=== PATIENT | male | born 1945 | race Caucasian/White ===

== ENCOUNTER 2019-02-25 09:08 | Inpatient (IN) | payer MEDICARE, MEDICAID ==
[2019-02-25] VITALS (9 sets, daily range): BP systolic 117–140; BP diastolic 27–75
[~2019-02-25] VITALS: Ht 167.6 cm; Wt 101.2 kg
[2019-02-25] MEDS ORDERED: IPRATROPIUM BROMIDE (0.02%) 0.5MG/2.5ML NEB HHN STA (09:21)
[2019-02-25] MEDS ORDERED: MAGNESIUM 2 G PREMIX 50 ML IV STA (09:21)
[2019-02-25] MEDS ORDERED: METHYLPREDNISOLONE SOD SUCC 125 MG/2 ML VIAL IV STA (09:21)
[2019-02-25] MEDS ORDERED: ALBUTEROL (0.083%) 2.5MG/3ML NEB HHN STA (09:21)
[2019-02-25] MEDS ORDERED: FUROSEMIDE 40MG/4ML VIAL IVP ONE (09:30)
[2019-02-25] MEDS ORDERED: ALBUTEROL (0.5%) 2.5MG/0.5ML NEB HHN ONE (09:34)
[2019-02-25] MEDS ORDERED: ALBUTEROL (0.083%) 2.5MG/3ML NEB ONE (09:35)
[2019-02-25] MEDS ORDERED: IPRATROPIUM BROMIDE (0.02%) 0.5MG/2.5ML NEB ONE (09:36)
[2019-02-25 09:37] LABS: CHLORIDE 109 mEq/L (98-107)
[2019-02-25 09:38] LABS: BASOPHILS % 0.9 % (0.0-2.0); EOSINOPHILS % 3.3 % (0.0-5.0); HEMATOCRIT. 39.9 % (42.0-52.0); HEMOGLOBIN. 13.2 g/dL (14.0-18.0); LYMPHOCYTES % 22.6 % (20.0-50.0); MEAN CORPUSCULAR HEMOGLOBIN 29.5 pg (28.0-32.0); MONOCYTES % 6.8 % (2.0-8.0); NEUTROPHILS % 66.4 % (40.0-76.0); PLATELET 186 x1000/uL (130-400); RED BLOOD CELL COUNT 4.48 mill/uL (4.7-6.1); RED CELL DISTRIBUTION WIDTH 15.3 % (11.6-14.6)
[2019-02-25 09:39] LABS: INR 1.3; PROTHROMBIN TIME 13.4 sec (9.6-11.0)
[2019-02-25 10:49] LABS: BG BASE EXCESS -2.4 mmol/L (-2.0-2.0); BG BILEVEL POS AIRWAY PRESSURE ST=15/5; BG CARBOXYHEMOGLOBIN 0.2 % (0.5-1.5); BG DEOXYHEMOGLOBIN 1.2 % (0.0-5.0); BG FRACTION INSPIRED OXYGEN 100; BG OXYGEN SATURATION 98.8 % (92.0-98.5); BG OXYHEMOGLOBIN 97.6 % (94.0-97.0); BG PCO2 42.3 mmHg (35.0-45.0); BG PH 7.354 (7.350-7.450); BG PO2 345.7 mmHg (75.0-100.0); BG PRESSURE SUPPORT 10; BG SAMPLE SITE LEFT BRACHIAL; BG VENT MODE MASK - BIPAP; BG VENT RATE 20 set
[2019-02-25 10:51] LABS: CLARITY URINE CLEAR (CLEAR); COLOR URINE YELLOW (YELLOW); KETONES URINE NEGATIVE (NEGATIVE); LEUKOCYTE ESTERASE URINE NEGATIVE (NEGATIVE); NITRITE URINE NEGATIVE (NEGATIVE); OCCULT BLOOD URINE NEGATIVE (NEGATIVE); PROTEIN URINE 2+ (NEGATIVE); SPECIFIC GRAVITY URINE 1.012 (1.005-1.030); UROBILINOGEN URINE 0.2 E.U./dL (0.2-1.0)
[2019-02-25] MEDS ORDERED: HYDROCODONE/ACETAMINOPHEN 5/325MG TABLET PO PRN (15:15)
[2019-02-25] MEDS ORDERED: ONDANSETRON HCL 4MG/2ML INJ IV PRN (15:15)
[2019-02-25] MEDS ORDERED: IPRATROPIUM/ALBUTEROL 0.5-3(2.5)MG/3ML NEB INH PRN (15:15)
[2019-02-25] MEDS ORDERED: CLONIDINE 0.1MG TABLET PO PRN (15:15)
[2019-02-25] MEDS ORDERED: ACETAMINOPHEN 325MG TABLET PO PRN (15:15)
[2019-02-25] MEDS: FUROSEMIDE 40MG/4ML VIAL IVP SCH (15:44)
[2019-02-25] MEDS: ENOXAPARIN 30MG/0.3ML SYR SUBCUT SCH (15:45)
[2019-02-25] MEDS ORDERED: DEXTROSE 50% WATER 50ML SYRINGE IV PRN (17:30)
[2019-02-25] MEDS: LEVOFLOXACIN 750MG PREMIX 150 ML IV SCH (17:31)
[2019-02-25] MEDS: INSULIN LISPRO 100 UNITS/ML SUBCUT SCH ×2 (17:32→20:55)
[2019-02-25] MEDS: BLOOD SUGAR DIAGNOSTIC STRIP TEST SCH ×2 (17:32→20:55)
[2019-02-25] MEDS: LISINOPRIL 10MG TABLET PO SCH (20:54)
[2019-02-25] MEDS: CARVEDILOL 3.125 MG TABLET PO SCH (20:54)
[2019-02-26] VITALS (13 sets, daily range): BP systolic 109–142; BP diastolic 55–77
[2019-02-26] MEDS: FUROSEMIDE 40MG/4ML VIAL IVP SCH ×2 (05:30→17:27)
[2019-02-26] MEDS: ENOXAPARIN 30MG/0.3ML SYR SUBCUT SCH (05:30)
[2019-02-26 06:42] LABS: BASOPHILS % 0.1 % (0.0-2.0); HEMATOCRIT. 36.1 % (42.0-52.0); HEMOGLOBIN. 12.2 g/dL (14.0-18.0); LYMPHOCYTES % 7.4 % (20.0-50.0); MEAN CORPUSCULAR HEMOGLOBIN 29.4 pg (28.0-32.0); MEAN CORPUSCULAR VOLUME 86.9 fL (80.0-94.0); MONOCYTES % 5.7 % (2.0-8.0); NEUTROPHILS % 86.8 % (40.0-76.0); PLATELET 136 x1000/uL (130-400); RED BLOOD CELL COUNT 4.15 mill/uL (4.7-6.1); RED CELL DISTRIBUTION WIDTH 14.7 % (11.6-14.6)
[2019-02-26 06:54] LABS: CHLORIDE 107 mEq/L (98-107)
[2019-02-26 07:10] LABS: LDL CHOLESTEROL 48 mg/dL (5-100)
[2019-02-26 07:11] LABS: HDL CHOLESTEROL 45 mg/dL (40-59)
[2019-02-26 07:13] LABS: CREATINE KINASE 59 IU/L (39-308)
[2019-02-26 07:24] LABS: T4 FREE 1.17 ng/dL (0.76-1.46)
[2019-02-26] MEDS: BLOOD SUGAR DIAGNOSTIC STRIP TEST SCH ×4 (08:22→21:21)
[2019-02-26] MEDS: CARVEDILOL 3.125 MG TABLET PO SCH ×2 (09:06→21:25)
[2019-02-26] MEDS: METHYLPREDNISOLONE SOD SUCC 40 MG/ML VIAL IV SCH (09:06)
[2019-02-26] MEDS: ASPIRIN 81MG EC TABLET PO SCH (09:07)
[2019-02-26] MEDS: INSULIN LISPRO 100 UNITS/ML SUBCUT SCH ×4 (09:13→21:31)
[2019-02-26] MEDS: LISINOPRIL 10MG TABLET PO SCH ×2 (09:18→21:25)
[2019-02-26] MEDS: LEVOFLOXACIN 750MG PREMIX 150 ML IV SCH (17:28)
[2019-02-26] MEDS: APIXABAN 5 MG TABLET PO SCH (21:25)
[2019-02-27] VITALS (8 sets, daily range): BP systolic 110–126; BP diastolic 59–73
[2019-02-27 06:29] LABS: BASOPHILS % 0.1 % (0.0-2.0); HEMATOCRIT. 36.5 % (42.0-52.0); HEMOGLOBIN. 12.3 g/dL (14.0-18.0); LYMPHOCYTES % 11.1 % (20.0-50.0); MEAN CORPUSCULAR HEMOGLOBIN 29.5 pg (28.0-32.0); MEAN CORPUSCULAR VOLUME 87.5 fL (80.0-94.0); MEAN PLATELET VOLUME 8.8 fl (7.4-10.4); MONOCYTES % 8.2 % (2.0-8.0); NEUTROPHILS % 80.6 % (40.0-76.0); PLATELET 151 x1000/uL (130-400); RED BLOOD CELL COUNT 4.17 mill/uL (4.7-6.1); RED CELL DISTRIBUTION WIDTH 14.6 % (11.6-14.6)
[2019-02-27] MEDS: BLOOD SUGAR DIAGNOSTIC STRIP TEST SCH ×2 (06:31→12:30)
[2019-02-27] MEDS: FUROSEMIDE 40MG/4ML VIAL IVP SCH (07:07)
[2019-02-27] MEDS: INSULIN LISPRO 100 UNITS/ML SUBCUT SCH ×2 (07:18→13:43)
[2019-02-27] MEDS: METHYLPREDNISOLONE SOD SUCC 40 MG/ML VIAL IV SCH (08:04)
[2019-02-27] MEDS: APIXABAN 5 MG TABLET PO SCH (08:05)
[2019-02-27] MEDS: CARVEDILOL 3.125 MG TABLET PO SCH (08:05)
[2019-02-27] MEDS: ASPIRIN 81MG EC TABLET PO SCH (08:05)
[2019-02-27] MEDS: LISINOPRIL 10MG TABLET PO SCH (08:06)
== END 2019-02-27 14:20 | disposition home or self-care (01) | DRG 291 ==
LOC: ER 09:08 → 5EST 09:59 → EDBEDREQ 10:06 → ENRESERV 10:46
PROVIDERS: ADMIT Internal Medicine; ATTEND Internal Medicine
PROC: 5A09357 Assistance with Respiratory Ventilation, Less than 24 Consecutive Hours, Continuous Positive Airway Pressure (ICD-10-PCS; principal; 2019-02-25)
DX: I11.0 Hypertensive heart disease with heart failure (principal); J96.01 Acute respiratory failure with hypoxia; J44.1 Chronic obstructive pulmonary disease with (acute) exacerbation; J84.9 Interstitial pulmonary disease, unspecified; I50.23 Acute on chronic systolic (congestive) heart failure; E78.5 Hyperlipidemia, unspecified; I42.9 Cardiomyopathy, unspecified; E11.9 Type 2 diabetes mellitus without complications; Z95.810 Presence of automatic (implantable) cardiac defibrillator; Z99.81 Dependence on supplemental oxygen; Z82.49 Family history of ischemic heart disease and other diseases of the circulatory system
CPT/HCPCS: 36415; 36600; 71045; 80048; 80061; 82375; 82550; 82805; 82962; 83605; 83735; 83880; 84145; 84439; 84443; 84484; 93005; 94640; 94660; 97116; 97162; 99291; J1650; J1815; J1940; J1956; J2920; J2930; J3475; J7050; J7611